=== PATIENT | male | born 1960 | race Caucasian/White ===

== ENCOUNTER 2017-04-20 06:16 | Day surgery (SDC) | payer BC ==
[~2017-04-20] VITALS: Ht 188 cm; Wt 95.3 kg
[2017-04-20] MEDS ORDERED: IMITREX100 MG PO (07:24)
[2017-04-20 07:26] LABS: BASOPHILS 0.3 % (0-2); EOSINOPHILS 1.7 % (0-7); HEMATOCRIT 47.5 % (42.0-54.0); HEMOGLOBIN 15.4 g/dL (13.5-17.5); IMMATURE GRANULOCYTES 0.2 % (0-5); LYMPHOCYTES 22.8 % (15-50); MCH 27.3 pg (26.0-34.0); MCHC 32.4 g/dL (31.0-37.0); MCV 84.2 fL (80.0-100.0); MEAN PLATELET VOLUME 10.8 fL (7.4-10.4); MONOCYTES 7.5 % (2-11); NEUTROPHILS 67.5 % (40-80); PLATELET COUNT 198 10x3/uL (130-400); RBC 5.64 10x6/uL (4.20-6.10); RDW 12.9 % (11.5-14.5)
[2017-04-20 07:30] VITALS: BP 127/91; Ht 188 cm; Wt 95.3 kg
[2017-04-20 07:37] LABS: ANION GAP 9.5 mmol/L (8-16); CALCIUM 9.1 mg/dL (8.5-10.1); CARBON DIOXIDE 29.8 mmol/L (21.0-32.0); CREATININE - SERUM 1.1 mg/dL (0.6-1.3); POTASSIUM - SERUM 4.3 mmol/L (3.5-5.1)
[2017-04-20] MEDS ORDERED: HYDROCODONE-APA1 TAB PO (10:26)
--- NOTE | 2017-05-11 12:19 | OP ---
PATIENT NAME: DERRELL GOULD MEDICAL RECORD: [id number] :62 LOCATION:D.OPS ADMISSION DATE: SURGEON: KAYLA JIMENEZ MD DATE OF OPERATION: 04/20/2017 DATE OF OPERATION: 04/20/2017 PREOPERATIVE DIAGNOSES: 1. Left back lipoma. 2. Migraines. POSTOPERATIVE DIAGNOSES: 1. Left back lipoma. 2. Migraines. PROCEDURE: Excision of 6 cm left back lipoma. SURGEON: Kayla Jimenez MD REPORT OF PROCEDURE: The patient's left back and flank were prepped and draped in sterile fashion. An oblique incision was made in the left upper lateral back overlying a large lipoma. Electrocautery was used to dissect through the subcutaneous tissues. The lipoma had a lot of finger-like projections extending from it. We did a tedious dissection around this trying to remove all of the cavitary systems in this lipoma. The total length of the incision was approximately 6 cm in length and the lipoma extended the entire width of the incision. We eventually were able to remove all of the lipomatous tissue and this continued all the way down to the fascia. We then treated the area with electrocautery to hopefully remove any other lipomatous tissue that was remaining in the wound. The wound was then irrigated out thoroughly with normal saline and care was taken to make sure there was no sign of any bleeding. At this point, the subcutaneous tissues were infused with 10 mL of 0.25% Marcaine with epinephrine and then reapproximated with interrupted 3-0 Vicryls. The skin was then closed with running subcutaneous 5-0 Monocryl and dressed appropriately. COMPLICATIONS: None. CONDITION: Stable. ANESTHESIA: General endotracheal and local. BLOOD LOSS: Minimal. 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
== END 2017-04-20 12:30 | disposition home or self-care (01) ==
LOC: D.OPS 06:16
PROVIDERS: Surgery
DX: D17.1 Benign lipomatous neoplasm of skin and subcutaneous tissue of trunk (principal); Z01.812 Encounter for preprocedural laboratory examination

== ENCOUNTER → 2017-12-06 19:21 | Outpatient (CLI) | payer BC ==
[2017-04-20 07:30] VITALS: BMI 27.0
[~2017-12-06 19:21] MED LIST: HYDROCODONE-APA1 TAB PO; IMITREX100 MG PO
== END | disposition home or self-care (01) ==
LOC: D.SLEEP 19:21
DX: G47.33 Obstructive sleep apnea (adult) (pediatric) (principal)

== ENCOUNTER → 2018-02-09 19:44 | Outpatient (CLI) | payer BC ==
[2017-04-20 07:30] VITALS: BMI 27.0
== END | disposition home or self-care (01) ==
LOC: D.SLEEP 19:44
DX: G47.33 Obstructive sleep apnea (adult) (pediatric) (principal); Z01.812 Encounter for preprocedural laboratory examination